=== PATIENT | male | born 1975 | race Caucasian/White ===

== ENCOUNTER 2017-06-28 23:14 | Emergency (ER) | payer OTHER ==
[2017-06-29 00:54] LABS: BASOPHIL % 0.3 % (0-2); PLATELET COUNT 211 x10^3mcL (130-400); RED CELL DISTRIBUTION WIDTH 13.1 % (11.5-14.5)
[2017-06-29 01:08] LABS: CALCIUM 8.7 mg/dL (8.5-10.1); CARBON DIOXIDE 27.6 mmol/L (21-32); CHLORIDE SERUM 106 mmol/L (98-107); CREATININE SERUM 0.7 mg/dL (0.7-1.3); GFR1 > 60 mL/min; GLUCOSE SERUM 100 mg/dL (74-106); POTASSIUM SERUM 3.9 mmol/L (3.5-5.1); SODIUM SERUM 140 mmol/L (136-145)
[2017-06-29 01:12] LABS: ALBUMIN 3.9 g/dL (3.4-5.0); ALKALINE PHOSPHATASE 130 U/L (46-116); ALT/SGPT 23 U/L (16-63); AST/SGOT 19 U/L (15-37); BILIRUBIN TOTAL 0.2 mg/dL (0.20-1.00); LIPASE 128 IU/L (73-393)
[2017-06-29 02:07] VITALS: BP 138/78
== END 2017-06-29 02:07 | disposition home or self-care (01) ==
LOC: ED 23:14
PROVIDERS: Emergency Medicine
DX: F43.29 Adjustment disorder with other symptoms (principal); Z79.899 Other long term (current) drug therapy
CPT/HCPCS: 85378; J1885; J2060; J7030; Q0092

== ENCOUNTER 2017-12-12 01:48 | Emergency (ER) | payer OTHER ==
[2017-12-12 05:43] VITALS: BP 126/84
== END 2017-12-12 05:43 | disposition home or self-care (01) ==
LOC: ED 01:48
DX: G89.18 Other acute postprocedural pain (principal); M25.532 Pain in left wrist
CPT/HCPCS: J1170; J1885; J3490; Q0092

== ENCOUNTER 2019-10-14 10:19 | Emergency (ER) | payer OTHER, MEDICAID ==
[~2019-10-14] VITALS: Ht 170.2 cm; Wt 80.7 kg
[2019-10-14 10:28] VITALS: Ht 170.2 cm; Wt 80.7 kg
[2019-10-14 12:31] VITALS: BP 127/84
== END 2019-10-14 12:31 | disposition home or self-care (01) ==
LOC: ED 10:19
DX: M54.5 Low back pain (principal)

== ENCOUNTER 2019-12-23 20:52 | Emergency (ER) | payer OTHER ==
[~2019-12-23] VITALS: Ht 170.2 cm; Wt 95.3 kg
[2019-12-23 21:02] VITALS: Ht 170.2 cm; Wt 95.3 kg
[2019-12-23 22:01] LABS: BASOPHIL % 0.4 % (0-2); PLATELET COUNT 184 x10^3mcL (130-400); RED CELL DISTRIBUTION WIDTH 12.8 % (11.5-14.5)
[2019-12-23 22:09] LABS: CALCIUM 8.4 mg/dL (8.5-10.1); CARBON DIOXIDE 28.5 mmol/L (21-32); CHLORIDE SERUM 103 mmol/L (98-107); CREATININE SERUM 0.7 mg/dL (0.7-1.3); GFR1 > 60 mL/min; GLUCOSE SERUM 128 mg/dL (74-106); POTASSIUM SERUM 3.7 mmol/L (3.5-5.1); SODIUM SERUM 139 mmol/L (136-145)
[2019-12-23 22:13] LABS: ALBUMIN 3.7 g/dL (3.4-5.0); ALKALINE PHOSPHATASE 89 U/L (46-116); ALT/SGPT 21 U/L (16-63); AST/SGOT 15 U/L (15-37); BILIRUBIN TOTAL 0.2 mg/dL (0.20-1.00); TOTAL PROTEIN, SERUM 7.2 g/dL (6.4-8.2)
[2019-12-24 00:20] VITALS: BP 130/90
== END 2019-12-24 00:20 | disposition home or self-care (01) ==
LOC: ED 20:52
PROVIDERS: Emergency Medicine
DX: R07.89 Other chest pain (principal); M62.838 Other muscle spasm; M54.6 Pain in thoracic spine
CPT/HCPCS: 85378; J1885; J3010; J7030; Q0092

== ENCOUNTER 2020-03-13 13:50 | Emergency (ER) | payer OTHER ==
[~2020-03-13] VITALS: Ht 170.2 cm; Wt 81.6 kg
[2020-03-13 14:16] VITALS: Ht 170.2 cm; Wt 81.6 kg
[2020-03-13 15:03] VITALS: BP 135/93
== END 2020-03-13 15:03 | disposition home or self-care (01) ==
LOC: ED 13:50
DX: S13.4XXA Sprain of ligaments of cervical spine, initial encounter (principal); X58.XXXA Exposure to other specified factors, initial encounter; Y93.89 Activity, other specified; Y92.89 Other specified places as the place of occurrence of the external cause; Y99.8 Other external cause status
CPT/HCPCS: J1885

== ENCOUNTER 2020-03-15 12:06 | Emergency (ER) | payer OTHER ==
[~2020-03-15] VITALS: Ht 170.2 cm; Wt 72.6 kg
[2020-03-15 12:23] VITALS: Ht 170.2 cm; Wt 72.6 kg
[2020-03-15 14:35] VITALS: BP 125/84
== END 2020-03-15 14:35 | disposition home or self-care (01) ==
LOC: ED 12:06
DX: M54.2 Cervicalgia (principal); G89.29 Other chronic pain
CPT/HCPCS: J1885; J2060

== ENCOUNTER 2020-12-20 16:12 | Emergency (ER) | payer OTHER ==
[~2020-12-20] VITALS: Ht 170.2 cm; Wt 101.6 kg
[2020-12-20 16:57] VITALS: Ht 170.2 cm; Wt 101.6 kg
[2020-12-20 21:35] VITALS: BP 123/74
== END 2020-12-20 21:35 | disposition home or self-care (01) ==
LOC: ED 16:12
DX: L03.114 Cellulitis of left upper limb (principal); Z98.890 Other specified postprocedural states
CPT/HCPCS: J1885